=== PATIENT | male | born 1965 | race Caucasian/White ===

== ENCOUNTER 2017-06-30 21:08 | Emergency (ER) | payer OTHER ==
[~2017-06-30] VITALS: Ht 170.2 cm; Wt 99.8 kg
--- NOTE | 2017-06-30 21:11 | NUR ---
Placed in room 01 . Placed on cardiac catheterization technologist, blood pressure machine and pulse oximeter. To gown for exam. Side rails up.
[2017-06-30 21:12] VITALS: BP_SYST 163
--- NOTE | 2017-06-30 21:13 | NUR ---
Patient brought to ED via BLS a/o x 4 with c/o syncope episode. Patient reports playing board games with family when he began to laugh and passed out. Patient's reports patient passed out and fell forward hitting head. Patient was down for 2 min. Denies medical history. Denies N/V. Pupils PERRL. Will continue to monitor.
--- NOTE | 2017-06-30 21:20 | NUR ---
ED MD Juan at bedside for medical evaluation.
--- NOTE | 2017-06-30 22:11 | NUR ---
Laboratory at bedside.
[2017-06-30 22:48] LABS: ANION GAP 11 (5-15); CALCIUM 8.8 mg/dL (8.4-11.0); CHLORIDE 105 mmol/L (98-107); CREATININE 0.95 mg/dL (0.55-1.30); GLUCOSE 102 mg/dL (70-99); POTASSIUM 3.6 mmol/L (3.5-5.1); SODIUM SERUM 141 mmol/L (136-145); UREA NITROGEN, BLOOD 22 mg/dL (8-21)
[2017-06-30 22:49] LABS: BASOPHILS % (AUTO) 0.5 % (0.0-2.0); EOSINOPHILS # (AUTO) 0.2 K/uL (0.0-0.4); EOSINOPHILS % (AUTO) 3.1 % (0.0-4.0); HEMOGLOBIN 14.2 g/dL (14.0-18.0); LYMPHOCYTES # (AUTO) 2.2 K/uL (1.0-5.5); LYMPHOCYTES % (AUTO) 30.2 % (20.5-51.5); MEAN CORPUSCULAR HEMOGLOBIN 28 pg (27-31); MEAN CORPUSCULAR HGB CONC 33 % (32-36); MEAN CORPUSCULAR VOLUME 86 fL (79.0-98.0); MONOCYTES # (AUTO) 0.6 K/uL (0.0-1.0); MONOCYTES % (AUTO) 8.4 % (1.7-9.3); NEUTROPHILS # (AUTO) 4.2 K/uL (1.8-7.7); NEUTROPHILS % (AUTO) 57.8 % (40.0-70.0); PLATELET COUNT (AUTO) 289 K/uL (130-430); RED BLOOD CELL COUNT(AUTO) 4.99 MIL/uL (4.2-6.2); RED CELL DISTRIBUTION WIDTH 12.9 % (9.0-15.0); WHITE BLOOD COUNT (AUTO) 7.2 K/uL (4.8-10.8)
[2017-06-30 22:52] LABS: ALBUMIN 3.9 g/dL (3.4-4.8); LIPASE 119 U/L (73-393)
[2017-06-30 23:17] LABS: ALANINE AMINOTRANSFERASE 48 U/L (12-78); ASPARTATE AMINOTRANSFERASE 24 U/L (10-37); TOTAL BILIRUBIN 0.3 mg/dL (0.0-1.0)
--- NOTE | 2017-06-30 23:23 | NUR ---
EKG performed at BS by Rajan FINE. Physician given copy of EKG for review.
[2017-06-30 23:25] LABS: GFR AFRICAN AMERICAN 106 mL/min (>90)
--- NOTE | 2017-06-30 23:30 | NUR ---
ED MD Juan at bedside reassessing patient.
[2017-06-30 23:50] VITALS: BP_SYST 154
--- NOTE | 2017-06-30 23:50 | NUR ---
Patient given written and verbal discharge instructions and verbalizes understanding. ER MD discussed with patient the results and treatment provided. Patient in stable condition. ID arm band removed. No Rx given. Patient educated on pain management and to follow up with PMD. Pain Scale 0/10 at this time. Opportunity for questions provided and answered.
== END 2017-06-30 23:50 | disposition home or self-care (01) ==
LOC: SED 21:08
DX: R55 Syncope and collapse (principal)
CPT/HCPCS: 36415; 80053; 83690-TC; 83880; 84484; 85025; 93005; 99285